=== PATIENT | male | born 1965 | race African-American/Black ===

== ENCOUNTER 2016-09-24 01:13 | Emergency (ER) | payer MEDICAID, OTHER ==
[~2016-09-24] VITALS: Ht 170.2 cm; Wt 79.4 kg
[2016-09-24 04:37] VITALS: BP 121/84
[2016-09-24] MEDS ORDERED: CLOTRIMAZOLE 1 % CREAM 15GM TOP ONE (05:45)
== END 2016-09-24 05:47 | disposition home or self-care (01) ==
LOC: ER 01:15
DX: B35.3 Tinea pedis (principal); Z59.0 Homelessness
CPT/HCPCS: 73630

== ENCOUNTER 2018-05-02 22:06 | Emergency (ER) | payer SELFPAY ==
[~2018-05-02] VITALS: Ht 175.3 cm; Wt 70.3 kg
[2018-05-02 22:28] VITALS: BP 133/78
== END 2018-05-03 00:29 | disposition home or self-care (01) ==
LOC: EDBD 22:06 → ER 22:12
DX: L25.9 Unspecified contact dermatitis, unspecified cause (principal)

== ENCOUNTER 2018-05-03 00:37 | Emergency (ER) | payer SELFPAY ==
[~2018-05-03] VITALS: Ht 162.6 cm; Wt 81.6 kg
[2018-05-03 01:17] LABS: Basophils # (auto) 0 uL; Basophils % (auto) 0.7 % (0.0-2.0); Eosinophils # (auto) 0.7 uL; Eosinophils % (auto) 9.9 % (0.0-7.0); Hematocrit 38.8 % (41.0-53.0); Hemoglobin 12.9 g/dL (13.5-17.5); Lymphocytes # (auto) 1.6 uL; Lymphocytes % (auto) 24.6 % (10.0-50.0); Mean Corpuscular Hemoglobin 29.6 pg (28.0-32.0); Mean Corpuscular Hgb Conc. 33.2 g/dL (32.0-36.0); Mean Corpuscular Volume 89.2 fL (80.0-100.0); Monocytes # (auto) 0.6 uL; Monocytes % (auto) 8.5 % (0.0-12.0); Neutrophils # (auto) 3.7 uL; Neutrophils % (auto) 56.3 % (37.0-80.0); Nucleated Red Blood Cells % 0.1 %; Platelet Count (auto) 201 10^3/uL (140-450); Red Blood Cells 4.35 10^6/uL (4.5-5.90); White Blood Cell 6.5 10^3/uL (4.4-10.8)
[2018-05-03 01:35] LABS: Albumin 3.2 g/dL (3.4-5.0); Anion Gap 8 (5-15); Blood Urea Nitrogen 13 mg/dL (7-18); Calcium 8.8 mg/dL (8.5-10.1); Carbon Dioxide 24 mmol/L (21-32); Chloride 111 mmol/L (98-107); Glucose 123 mg/dL (74-106); Salicylate < 1.7 mg/dL (2.8-20.0); Sodium 143 mmol/L (136-145)
[2018-05-03 01:37] LABS: BUN/Creatinine Ratio 11.9; Blood Alcohol < 3.0 mg/dL (0-5); GFR African American 91 mL/min; GFR Non-African American 75 mL/min
[2018-05-03 01:38] LABS: Acetaminophen < 2.0 ug/mL (10-30)
[2018-05-03 01:40] LABS: Alanine Aminotransferase 20 U/L (16-61); Alkaline Phosphatase 62 U/L (45-117); Aspartate Aminotransferase 20 U/L (15-37); Bilirubin, Total 0.3 mg/dL (0.2-1.0); Total Protein 7.1 g/dL (6.4-8.2)
[2018-05-03 05:08] LABS: Urine WBC None Seen /hpf (0 - 3)
[2018-05-03 05:18] LABS: Urine Bacteria NONE SEEN /hpf (None Seen); Urine Blood Negative /uL (Negative); Urine Specific Gravity 1.015 (1.001-1.035)
[2018-05-03 05:33] LABS: Alcohol, Urine < 3.0 mg/dL (0-5); Amphetamine Screen, Urine NEGATIVE (NEGATIVE); Barbiturate Scree,Urine NEGATIVE (NEGATIVE); Benzodiazephine Screen, Urine NEGATIVE (NEGATIVE); Cannabinoid Screen, Urine NEGATIVE (NEGATIVE); Cocaine Screen, Urine NEGATIVE (NEGATIVE); Opiate Scree,Urine NEGATIVE (NEGATIVE); Phencyclidine Screen, Urine NEGATIVE (NEGATIVE)
[2018-05-03 10:38] VITALS: BP 135/55
== END 2018-05-03 10:40 | disposition home or self-care (01) ==
LOC: ER 00:38
DX: B86 Scabies (principal); R44.1 Visual hallucinations; E46 Unspecified protein-calorie malnutrition
CPT/HCPCS: 36415; 80053; 80307; 80320; 80329; 81001; 85025

== ENCOUNTER 2018-05-03 21:04 | Emergency (ER) | payer MEDICAID, OTHER ==
[~2018-05-03] VITALS: Ht 162.6 cm; Wt 81.6 kg
[2018-05-03 21:16] VITALS: BP 130/84
[2018-05-04] MEDS ORDERED: methylPREDNISolone SOD SUCC 125 MG/2 ML VL IM ONE (02:00)
== END 2018-05-03 23:15 | disposition home or self-care (01) ==
LOC: ER 21:04
DX: Z00.00 Encounter for general adult medical examination without abnormal findings (principal); Z59.0 Homelessness

== ENCOUNTER 2018-05-14 17:33 | Emergency (ER) | payer OTHER ==
[~2018-05-14] VITALS: Ht 172.7 cm; Wt 79.4 kg
[2018-05-14 20:50] VITALS: BP 124/82
== END 2018-05-14 21:17 | disposition home or self-care (01) ==
LOC: ER 17:33
DX: L30.9 Dermatitis, unspecified (principal); J45.909 Unspecified asthma, uncomplicated; F17.210 Nicotine dependence, cigarettes, uncomplicated; F12.90 Cannabis use, unspecified, uncomplicated; Z59.0 Homelessness

== ENCOUNTER 2018-05-25 00:16 | Emergency (ER) | payer SELFPAY ==
[2018-05-25 00:26] VITALS: BP 125/78
== END 2018-05-25 03:43 | disposition home or self-care (01) ==
LOC: ER 00:17
DX: L30.9 Dermatitis, unspecified (principal); J45.909 Unspecified asthma, uncomplicated; F17.210 Nicotine dependence, cigarettes, uncomplicated; F12.10 Cannabis abuse, uncomplicated; Z59.0 Homelessness; Z91.041 Radiographic dye allergy status